=== PATIENT | male | born 1975 | race Two or more races ===

== ENCOUNTER 2023-12-22 12:53 | Emergency (ER) | payer OTHER ==
[~2023-12-22] VITALS: Ht 182.9 cm; Wt 136.1 kg
[2023-12-22] MEDS ORDERED: ORPHENADRINE CITRATE 30 MG/ML AMPUL IM ONE (14:00)
[2023-12-22] MEDS ORDERED: KETOROLAC TROMETHAMINE 60 MG VIAL IM ONE ×2 (14:00→14:14)
[2023-12-22] MEDS ORDERED: ORPHENADRINE CITRATE 30 MG/ML AMPUL ONE (14:14)
== END 2023-12-22 18:56 | disposition home or self-care (01) ==
LOC: ER 12:54
DX: S93.492A Sprain of other ligament of left ankle, initial encounter (principal); X58.XXXA Exposure to other specified factors, initial encounter; Y93.89 Activity, other specified; Y92.89 Other specified places as the place of occurrence of the external cause; Y99.8 Other external cause status; M25.572 Pain in left ankle and joints of left foot
CPT/HCPCS: 73610; 73630; 96372; 99283; J1885; J2360